=== PATIENT | female | born 1965 | race Hispanic/Latino ===

== ENCOUNTER 2017-09-25 09:46 | Emergency (ER) | payer OTHER ==
--- NOTE | 2017-09-25 15:57 | Emergency Department Report ---
ED Shortness of Breath HPI - General Chief Complaint: Adult Asthma Stated Complaint: CANT BREATHE Source: patient, family Mode of arrival: Ambulatory Limitations: No Limitations - History of Present Illness Initial Comments: 51 y/o nontoxic in appearance F presents with her . She has a PMHX of asthma, bipolar, and tachycardia presents with SOB. She states that she has asthma flare ups every now and then and this feels similar. She denies any hospitalizations or intubations for asthma. She states her last asthma attack was in 2013. Pt states that this morning she used her inhaler 4 times and an epi pen to help slightly with breathing. She denies any sick contacts. Current vaper, denies any recent car or plane rides, surgeries, or cancer. Lives a pretty mobile lifestyle. No hx of blood clots in the past. She reports to cough, nasal congestion, wheezing, and a burning sensation of the chest/ chest tightness. No reported chest pain, fever, chills, headache, dizziness, arm pain/jaw pain, sweating, nausea, or vomiting. No hemoptysis. No reported exposure to triggers. NKDA. ROONEY Complaint: shortness of breath, cough, "asthma attack" -: Sudden Improves With: bronchodilators Known History Of: asthma Context: other (no reported exposures) Associated Symptoms: cough, sputum production Treatments Prior to Arrival: bronchodilator, other (epipen) - Related Data Previous Rx's Medication Instructions Recorded Last Taken Type Albuterol Sulfate [Proair 90 mcg IH Q6HR #1 bottle 09/25/17 Unknown Rx Respiclick] predniSONE [Deltasone] 50 mg PO QDAY #5 tab 09/25/17 Unknown Rx Allergies Allergy/AdvReac Type Severity Reaction Status Date / Time No Known Allergies Allergy Unverified 09/25/17 10:29 ED Review of Systems ROS: Stated complaint: CANT BREATHE Other details as noted in HPI Constitutional: denies: chills, fever Eyes: denies: eye pain, eye discharge, vision change ENT: denies: ear pain, throat pain Respiratory: cough, shortness of breath, wheezing Cardiovascular: denies: chest pain, palpitations Gastrointestinal: denies: abdominal pain, nausea, diarrhea Genitourinary: denies: urgency, dysuria, discharge Musculoskeletal: denies: back pain, joint swelling, arthralgia Skin: denies: rash, lesions Neurological: denies: headache, weakness, paresthesias Psychiatric: denies: anxiety, depression ED Past Medical Hx - Past Medical History Previous Medical History?: Yes Hx Asthma: Yes - Surgical History Past Surgical History?: Yes Hx Appendectomy: Yes Additional Surgical History: Hysterectomy, Left ovary removed, Colon resection, Nicola shoulder surgery, Neck fusion, Adhesions removal, Tubaligation - Social History Smoking Status: Current Every Day Smoker Substance Use Type: Prescribed - Medications Home Medications: Home Medications Medication Instructions Recorded Confirmed Last Taken Type Albuterol Sulfate [Proair 90 mcg IH Q6HR #1 bottle 09/25/17 Unknown Rx Respiclick] predniSONE [Deltasone] 50 mg PO QDAY #5 tab 09/25/17 Unknown Rx ED Physical Exam - General Limitations: No Limitations General appearance: alert, in no apparent distress - Head Head exam: Present: atraumatic, normocephalic - Eye Eye exam: Present: normal appearance, PERRL, EOMI - ENT ENT exam: Present: other (mild nasal congestion noted in b/l nares) - Neck Neck exam: Present: normal inspection, full ROM - Respiratory Respiratory exam: Present: wheezes (ausculated anteriorly and posteriorly of all lung olivia), chest wall tenderness (reproducible at ribs 3 and 4, with mild coughing noted on exam) - Cardiovascular Cardiovascular Exam: Present: regular rate, normal rhythm. Absent: systolic murmur, diastolic murmur, rubs, gallop - Neurological Exam Neurological exam: Present: alert, oriented X3 - Psychiatric Psychiatric exam: Present: normal affect, normal mood - Skin Skin exam: Present: warm, dry, intact, normal color. Absent: rash ED Course Vital Signs 09/25/17 09/25/17 10:29 17:10 Temperature 98.4 F Pulse Rate 92 H 96 H Respiratory 20 Rate Blood Pressure 132/66 Blood Pressure 126/71 [Left] O2 Sat by Pulse 97 Oximetry ED Medical Decision Making - Lab Data Result diagrams: 09/25/17 16:22 09/25/17 16:32 - EKG Data When compared to previous EKG there are: previous EKG unavailable 09/26/17 17:21 Rate- 89, sinus rhythm, low voltage, RSR in V1 and V2, right VCD or RVH, Borderline T abnormalities, diffuse leads, prolonged QT intervals UT-168 QRSD-102 QT-437 QTc- 532 Drew: P: 30 qrs: 40 T: -30 09/26/17 17:23 - Radiology Data Radiology results: report reviewed CXR : increased density on lateral view seen anteriorly at approximately the T9- 10 level, likely osseous. Mild aortic tortuosity and mild elevation of the right diaphragm. - Medical Decision Making Case was discussed with Dr. Schuster and he agrees with plan of care. CBC, CMP, d -dimer, troponin T, EKG, and CXR were conducted to rule out other causes of SOB beside asthma. These were essentially unremarkable for any acute issues. There was a possibility for a pulmonary nodule noted on CXR, I have given a pulmonary referral for further evaulation for this issue. The CXR was otherwise , consistent with asthma flare up. No long car rides, no recent surgeries, no hx of blood clots. She was treated with 100 mg solu-medrol and duoneb breathing treatment and she states that she is feel so much better. She was given prednisone 50 mg x5 days and proair inhaler to use every 6 hours for the next 3 days and then PRN. Pt was discharged with referrals to cardiology/ pulmonary and pcp. She was discharged in stable condition, nontoxic in appearance- no resp distress/no tripoding/no signs of cyanosis, alert and oriented, and speaking in full sentences, wheezing had subsided. Pt reported to feeling a whole lote better at discharge. Critical care attestation.: If time is entered above; I have spent that time in minutes in the direct care of this critically ill patient, excluding procedure time. ED Disposition Clinical Impression: Asthma exacerbation Qualifiers: Asthma severity: moderate Asthma persistence: unspecified Qualified Code(s): J45.901 - Unspecified asthma with (acute) exacerbation Disposition: DC-01 TO HOME OR SELFCARE Is pt being admited?: No Does the pt Need Aspirin: No Condition: Stable Instructions: Asthma (ED) Additional Instructions: Please take one prednisone per day for the next 5 days, do not take any NSAIDs/ anti-inflammatory with this medication. Please use the inhaler every 6 hours for the next 3 days then as needed. Please follow-up with cardiology and pulmonary. PCP follow-up within 3-5 is recommended. Please return to the ER immediately if your presenting symptoms acutely progress or worsen. Prescriptions: Albuterol Sulfate [Proair Respiclick] 90 mcg IH Q6HR #1 bottle predniSONE [Deltasone] 50 mg PO QDAY #5 tab Referrals: PRIMARY CARE, [Primary Care Provider] - 3-5 Days GONZALO EDWARD MD [Staff Physician] - 3-5 Days ALLAN TRUONG MD [Staff Physician] - 3-5 Days [facility] [Outside] - 3-5 Days [facility] [Outside] - 3-5 Days Forms: Accompanied Note, Work/School Release Form(ED)
[2017-09-25] MEDS ORDERED: DUONEB *Not for PRN Use IH ONE (16:28)
[2017-09-25 16:48] LABS: Basophils # (Auto) 0.1 K/mm3 (0.0-0.1); Basophils % (Auto) 1.1 % (0.0-1.8); Eosinophils % (Auto) 0.4 % (0.0-4.3); Hematocrit 31.8 % (30.3-42.9); Hemoglobin 10.3 gm/dl (10.1-14.3); Lymphocytes # (Auto) 2.1 K/mm3 (1.2-5.4); Lymphocytes % (Auto) 22.8 % (13.4-35.0); Mean Corpuscular HGB Conc 33 % (30-34); Mean Corpuscular Volume 72 fl (79-97); Monocytes # (Auto) 0.6 K/mm3 (0.0-0.8); Monocytes % (Auto) 6.9 % (0.0-7.3); Platelet Count 252 K/mm3 (140-440); Red Blood Count 4.44 M/mm3 (3.65-5.03); Red Cell Distribution Width 17.7 % (13.2-15.2)
[2017-09-25 16:59] LABS: Mean Corpuscular Hemoglobin 23 pg (28-32)
--- NOTE | 2017-09-25 17:08 | XRay Report ---
FINAL REPORT PROCEDURE: XR CHEST ROUTINE 2V TECHNIQUE: PA and lateral chest radiographs were obtained. CPT 06711 HISTORY: Wheezing and cough. COMPARISON: No prior studies are available for comparison. FINDINGS: Heart: The heart size is top-normal. Mediastinum/Vessels: Mild aortic tortuosity. Lungs/Pleural space: Normal. Mild elevation of the right diaphragm. Bony thorax: Cervical spine hardware. There is increased density about the anterior aspect of the vertebral bodies at approximately the T9-10 level. Other: IMPRESSION: Increased density on lateral view seen anteriorly at approximately the T9-10 level, likely osseous. Recommend direct comparison with prior radiographs and/or chest CT if there is concern for pulmonary nodule.
[2017-09-25 17:09] LABS: Albumin 4.4 g/dL (3.9-5); BUN/Creatinine Ratio 9; Blood Urea Nitrogen 8 mg/dL (7-17); Calcium 9.6 mg/dL (8.4-10.2); Hemolysis Index 20
[2017-09-25 17:10] LABS: Alanine Aminotransferase < 5 units/L (7-56)
[2017-09-25 17:11] VITALS: BP 126/71
== END 2017-09-25 19:03 | disposition home or self-care (01) ==
LOC: ED 09:46
DX: J45.901 Unspecified asthma with (acute) exacerbation (principal); F17.200 Nicotine dependence, unspecified, uncomplicated
CPT/HCPCS: 36415; 71020; 80053; 84484; 85025; 85379; 93005; 93010; 94640; 96372; 99284; J2920

== ENCOUNTER 2022-02-18 16:40 | Emergency (ER) | payer SELFPAY | END 2022-02-18 17:00 | disposition left against medical advice (07) | LOC: ED 16:40 | DX: R10.9 Unspecified abdominal pain (principal); Z53.21 Procedure and treatment not carried out due to patient leaving prior to being seen by health care provider ==